=== PATIENT | male | born 1990 | race Caucasian/White ===

== ENCOUNTER 2018-08-24 07:18 | Emergency (ER) | payer OTHER ==
[~2018-08-24] VITALS: Ht 175.3 cm; Wt 68.0 kg
[~2018-08-24 07:18] MED LIST: CEFADROXIL500 MG PO; KETO10TA2 PO
== END 2018-08-24 10:49 | disposition home or self-care (01) ==
LOC: ER 07:18
DX: R10.84 Generalized abdominal pain (principal); R50.9 Fever, unspecified

== ENCOUNTER 2021-02-08 02:18 | Emergency (ER) | payer OTHER ==
[~2021-02-08] VITALS: Ht 152.4 cm; Wt 70.3 kg
[2021-02-08] MEDS ORDERED: ZYNCOF 20-400120 ML PO (06:14)
== END 2021-02-08 06:30 | disposition home or self-care (01) ==
LOC: ER 02:18
DX: B34.9 Viral infection, unspecified (principal); R06.02 Shortness of breath; R50.9 Fever, unspecified; Z11.52 Encounter for screening for COVID-19

== ENCOUNTER → 2023-02-17 | Emergency (ER) | payer OTHER ==
[~2023-02-17] VITALS: Ht 175.3 cm; Wt 70.3 kg
[~2023-02-17] MED LIST changes: +ZYNCOF 20-400120 ML PO
== END | disposition left against medical advice (07) ==
LOC: ER 21:53
DX: Z53.21 Procedure and treatment not carried out due to patient leaving prior to being seen by health care provider (principal)

== ENCOUNTER 2023-02-25 14:43 | Emergency (ER) | payer OTHER ==
[~2023-02-25] VITALS: Ht 175.3 cm; Wt 70.3 kg
[2023-02-25 17:14] LABS: HEMATOCRIT 39.5 % (39.0-48.0); HEMOGLOBIN 13.5 g/dL (13-16.00); MEAN CELL VOLUME 85.6 fL (80.0-100.00); MEAN CORPUSCULAR HEMOGLOBIN 29.3 pg (27.00-32.0); MEAN CORPUSCULAR HGB CONC 34.2 g/dl (32.0-36.0); PLATELET COUNT 225 K/uL (150-450); RED BLOOD COUNT 4.62 M/uL (4.00-6.00); RED CELL DISTRIBUTION WIDTH 12.9 % (11.5-14.5)
[2023-02-25 17:39] LABS: ABG PH 7.438 (7.35-7.45); ABG PO2 89.7 mmHg (80-100); ABG pCO2 37.1 mmHg (35-45); BASE EXCESS 0.7 mmol/l; BICARBONATE 24.5 mmol/l (23-25); SaO2 97.2 %; Tco2 25.7 mmol/l; allen test SATISFACTORY; o2 21 %; puncture site RADIAL RIGHT
[2023-02-25 17:41] LABS: PH,URINE 6.5 (5.0-8.0); URINE APPEARANCE Clear; URINE BILIRRUBIN Negative (NEGATIVE); URINE BLOOD Negative; URINE COLOR Yellow; URINE GLUCOSE Negative (NEGATIVE); URINE LEUKOCYTE Negative; URINE NITRATE Negative; URINE PROTEIN Negative (NEGATIVE); URINE UROBILINOGEN 0.2 E.U./dl
[2023-02-25 17:46] LABS: URINE BACTERIA 1.2 uL (0.0-1933); URINE EPITHELIAL CELLS 0.6 uL (0.0-38.8); URINE RBC 0.1 uL (0.0-20.8)
[2023-02-25 17:47] LABS: ALBUMIN 3.6 gm/dL (3.4-5.0); BILIRUBIN TOTAL 0.42 mg/dL (0.3-1.2); CALCIUM 8.6 mg/dL (8.5-10.1); CREATININE SERUM 0.99 mg/dL (0.70-1.30); GFR 86.53; POTASSIUM 3.33 mEq/L (3.5-5.1); TOTAL PROTEIN 7.6 gm/dL (6.4-8.2)
== END 2023-02-25 19:25 | disposition home or self-care (01) ==
LOC: ER 14:43
PROVIDERS: General Practice
DX: J98.01 Acute bronchospasm (principal); Z20.822 Contact with and (suspected) exposure to COVID-19